=== PATIENT | female | born 1975 | race Caucasian/White ===

== ENCOUNTER → 2017-07-30 | Outpatient (CLI) | payer BC ==
--- NOTE | 2017-07-30 10:22 | MM ---
Reason for exam: screening (asymptomatic). Baseline mammogram. History: Taking hormonal contraceptives for 16 years beginning at age 26. Physical Findings: Nurse did not find any significant physical abnormalities on exam. MG Screening Mammo w CAD Bilateral CC and MLO view(s) were taken. The breast tissue is heterogeneously dense. This may lower the sensitivity of mammography. There is no discrete abnormality. These results were verbally communicated with the patient and result sheet given to the patient on 07/30/17. ASSESSMENT: Negative, BI-RAD 1 RECOMMENDATION: Routine screening mammogram of both breasts in 1 year.
== END | disposition home or self-care (01) ==
LOC: RADMAMWWP 09:29
PROVIDERS: ATTEND Obstetrics & Gynecology Obstetrics
DX: Z12.31 Encounter for screening mammogram for malignant neoplasm of breast (principal)

== ENCOUNTER → 2018-10-15 | Outpatient (CLI) | payer BC ==
--- NOTE | 2018-10-16 10:00 | MM ---
Reason for exam: screening (asymptomatic). Last mammogram was performed 1 year and 2 months ago. History: Taking hormonal contraceptives for 17 years beginning at age 26. Physical Findings: A clinical breast exam by your physician is recommended on an annual basis and results should be correlated with mammographic findings. MG 3D Screening Mammo W/Cad Bilateral CC and MLO view(s) were taken. Prior study comparison: July 30, 2017, bilateral MG screening mammo w CAD. The breast tissue is heterogeneously dense. This may lower the sensitivity of mammography. Stable benign calcifications. There is no discrete abnormality. No significant changes when compared with prior studies. ASSESSMENT: Benign, BI-RAD 2 RECOMMENDATION: Routine screening mammogram of both breasts in 1 year.
== END | disposition home or self-care (01) ==
LOC: RADMAMWWP 09:52
PROVIDERS: ATTEND Obstetrics & Gynecology Obstetrics
DX: Z12.31 Encounter for screening mammogram for malignant neoplasm of breast (principal)
CPT/HCPCS: 77063; 77067

== ENCOUNTER 2019-12-26 12:59 | Observation (INO) | payer BC ==
[2019-12-26] MEDS ORDERED: HYDROmorphone 1 MG/ML 1 ML SYRINGE IVP STA (13:18)
[2019-12-26] MEDS ORDERED: SODIUM CHLORIDE 0.9% 1,000 ML IV STA (13:18)
--- NOTE | 2019-12-26 13:22 | ED ---
General Adult HPI - General Chief complaint: Abdominal Pain Stated complaint: Abd Pain Time Seen by Provider: 12/26/19 13:02 Source: patient, RN/MD (Discussed with transferring physician), EMS, RN notes reviewed, old records reviewed (Reviewed reports from [facility]) Mode of arrival: EMS Limitations: no limitations - History of Present Illness Initial comments: Patient is a pleasant 44-year-old female presenting to the emergency Department with complaints of pelvic/abdominal pain. Onset of symptoms was around . Discomfort has been waxing and waning since that time and is moderate at this time. No history of similar symptoms previously. Patient was seen at [facility] with concern for possible tubo-ovarian abscess or ovarian torsion based on CT and ultrasound. Patient states discomfort is actually more right lower abdomen/pelvis however does radiate throughout. Discomfort is positional. Discomfort is severe at times. - Related Data Home Medications Medication Instructions Recorded Confirmed Levothyroxine Sodium [Levoxyl] 112 mcg PO DAILY 11/22/15 12/26/19 Naproxen 500 mg PO HS 11/22/15 12/26/19 Allergies Allergy/AdvReac Type Severity Reaction Status Date / Time No Known Allergies Allergy Verified 12/26/19 14:04 Review of Systems ROS Statement: Those systems with pertinent positive or pertinent negative responses have been documented in the HPI. ROS Other: All systems not noted in ROS Statement are negative. Constitutional: Denies: fever Eyes: Denies: eye pain ENT: Denies: ear pain Respiratory: Denies: cough Cardiovascular: Denies: chest pain Endocrine: Denies: fatigue Gastrointestinal: Reports: as per HPI, abdominal pain Genitourinary: Reports: other (Pelvic pain) Musculoskeletal: Denies: arthralgia Skin: Denies: rash Neurological: Denies: weakness Past Medical History Past Medical History: No Reported History History of Any Multi-Drug Resistant Organisms: None Reported Additional Past Surgical History / Comment(s): COLON BIOPSY Past Psychological History: No Psychological Hx Reported Smoking Status: Never smoker Past Alcohol Use History: None Reported Past Drug Use History: None Reported General Exam Limitations: no limitations General appearance: alert Head exam: Present: normocephalic Eye exam: Present: normal appearance Neck exam: Present: normal inspection Respiratory exam: Present: normal lung sounds bilaterally Cardiovascular Exam: Present: regular rate, normal rhythm Expanded Peripheral pulses: 2+: Dorsalis Pedis (R), Dorsalis Pedis (L) GI/Abdominal exam: Present: soft, tenderness (Moderate tenderness lower abdomen), normal bowel sounds. Absent: distended, guarding, rebound, rigid Extremities exam: Present: normal inspection Neurological exam: Present: alert Psychiatric exam: Present: normal affect, normal mood Skin exam: Present: normal color Course Vital Signs 12/26/19 13:01 Temperature 99.7 F H Pulse Rate 77 Respiratory 18 Rate Blood Pressure 108/72 O2 Sat by Pulse 98 Oximetry - Reevaluation(s) Reevaluation #1: 12/26/19 13:22 Case was discussed twice with Dr. Harris, covering for Dr. Gil who would like repeat ultrasound. She will come evaluate the patient. Medical Decision Making - Medical Decision Making Patient was seen emergency department by Dr. Valero who will take patient to the OR. Patient reevaluated and updated. - Radiology Data Radiology results: report reviewed (Pelvic ultrasound shows enlarged uterus with underlying leiomyomas. Displaced IUD. Complex left ovarian lesion could represent hemorrhagic cyst. Complex fluid in cul-de-sac. No evidence of torsion.) Disposition Clinical Impression: Hemorrhagic cyst of left ovary Disposition: ADMITTED IP TO THIS HOSP Condition: Serious Is patient prescribed a controlled substance at d/c from ED?: No Referrals: Ray Rodriguez III, MD [Primary Care Provider] - 1-2 days Decision Time: 14:42
--- NOTE | 2019-12-26 14:03 | US ---
EXAMINATION TYPE: US pelvic complete DATE OF EXAM: 12/26/2019 COMPARISON: NONE CLINICAL HISTORY: Ovarian cystic lesion, evaluate for abscess or tor. severe pelvic pain, IUD placeme nt 3 years ago TECHNIQUE: Transabdominal (TA). Patient preferred TA approach at this time due to pain Date of LMP: unknown EXAM MEASUREMENTS: Uterus: 14.0 x 6.7 x 7.8 cm Endometrial Stripe: 0.6 cm Right Ovary: 3.0 x 1.7 x 2.1 cm Left Ovary: 6.7 x 4.2 x 5.0 cm 1. Uterus: Anteverted hypoechoic area fundus/body = 5.4 x 4.6 x 5.0cm 2. Endometrium: IUD visualized 3. Right Ovary: follicles noted 4. Left Ovary: enlarged with complex area = 5.4 x 3.4 x 3.5cm Spectral, color and waveform doppler imaging shows good arterial and venous flow within the ovaries ; there is no evidence for ovarian torsion. 5. Bilateral Adnexa: free fluid right adnexa 6. Posterior cul-de-sac: complex fluid collection noted within cul-de-sac ?blood IMPRESSION: 1. Enlarged uterus with underlying leiomyomatous change. 2. Displaced IUD. 3. Complex left ovarian lesion may reflect hemorrhagic cyst. Lesion of other etiology not excluded. A ppropriate follow-up advised. Complex fluid within the cul-de-sac as well. No evidence for torsion.
--- NOTE | 2019-12-26 14:43 | P.HPOB ---
History of Present Illness H&P Date: 12/26/19 Chief Complaint: left hemorrhagic cyst, abdominal pain This is a pleasant 44-year-old female that presents to the emergency department as a transfer patient from [facility]. Patient presented to the ER with complaints of abdominal pain. Patient states on Sunday she was having intercourse and noted sharp onset of discomfort. Patient states it was uncomfortable to move she worse on her back. Patient states by the next day she felt slightly improved. By she was feeling well, had intercourse once again pain returned more sharp, she noted diarrhea/increased pain with a bowel movement after intercourse as well. Patient had an ultrasound here in our emergency department revealing a enlarged uterus of 14 cm, normal and Pily stripe, normal right ovary, left complex area measuring 5.4 x 3.4 x 3.5 cm. Complex fluid noted in the cul-de-sac suspicious for blood. Patient denies fevers or chills at home. Patient has a known IUD in place, she denies any irregular menstrual bleeding. 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 Review of Systems Constitutional: Denies chills, Denies fever Ears, nose, mouth and throat: Denies headache Cardiovascular: Denies edema Respiratory: Denies cough Gastrointestinal: Reports bloating, Reports diarrhea, Reports hematochezia, Denies nausea, Denies vomiting Genitourinary: Denies abnormal vaginal bleeding, Denies dyspareunia, Denies urgency Past Medical History Past Medical History: No Reported History History of Any Multi-Drug Resistant Organisms: None Reported Additional Past Surgical History / Comment(s): COLON BIOPSY Past Psychological History: No Psychological Hx Reported Smoking Status: Never smoker Past Alcohol Use History: None Reported Past Drug Use History: None Reported Medications and Allergies Home Medications Medication Instructions Recorded Confirmed Type Levothyroxine Sodium [Levoxyl] 112 mcg PO DAILY 11/22/15 12/26/19 History Naproxen 500 mg PO HS 11/22/15 12/26/19 History Allergies Allergy/AdvReac Type Severity Reaction Status Date / Time No Known Allergies Allergy Verified 12/26/19 14:04 Exam Osteopathic Statement: *. No significant issues noted on an osteopathic structural exam other than those noted in the History and Physical/Consult. Vital Signs Temp Pulse Resp BP Pulse Ox 12/26/19 13:01 99.7 F H 77 18 108/72 98 Intake and Output 12/25/19 12/26/19 12/26/19 22:59 06:59 14:59 Other: Weight 63.503 kg Targeted physical exam is performed and the state in general this is a well- nourished well-developed female in obvious acute pain. Breathing is noted to be nonlabored, heart has regular rate and rhythm, abdomen is noted to be distended and tender diffusely. On bimanual exam external genitalia is noted to be normal, cervix is palpated in normal diffuse tenderness is noted on exam. It was difficult to appreciate either ovary secondary to discomfort. Assessment and Plan (1) Hemorrhagic cyst of left ovary Current Visit: Yes Status: Acute Code(s): N83.202 - UNSPECIFIED OVARIAN CYST, LEFT SIDE SNOMED Code(s): 705785097 (2) Abdominal pain Current Visit: Yes Status: Acute Code(s): R10.9 - UNSPECIFIED ABDOMINAL PAIN SNOMED Code(s): 62105125 Plan: Exam findings are discussed with the patient in her significant other, given the surgical nature of her abdomen recommending operative laparoscopy, possible left oophorectomy, possible open to complete procedure if necessary. Risks of surgery are reviewed with the patient in detail including but not limited to infection, bleeding, damage to bowel, bladder, ureteric injury. Patient states understanding and informed consent is obtained.
[2019-12-26] MEDS ORDERED: HYDROmorphone 1 MG/ML 1 ML SYRINGE IVP PRN (14:44)
[2019-12-26] MEDS ORDERED: ROCURONIUM BROMIDE 10 MG/ML 5 ML VIAL IV ONE (15:35)
[2019-12-26] MEDS ORDERED: DEXAMETHASONE SOD PHOS (MDV) 100 MG/10 ML VIAL ONE (15:35)
[2019-12-26] MEDS ORDERED: fentaNYL (PF) 50 MCG/ML 2 ML AMP ONE (15:35)
[2019-12-26] MEDS ORDERED: ONDANSETRON 4 MG/2 ML VIAL ONE (15:35)
[2019-12-26] MEDS ORDERED: MIDAZOLAM 2 MG/2 ML VIAL ONE (15:35)
[2019-12-26] MEDS ORDERED: GLYCOPYRROLATE 0.2 MG/ML 2 ML VIAL ONE (15:35)
[2019-12-26] MEDS ORDERED: LIDOCAINE 1% INJ 10MG/ML (20 ML MDV) ONE (15:35)
[2019-12-26] MEDS ORDERED: NEOSTIGMINE 1 MG/ML 10 ML VIAL ONE (15:35)
[2019-12-26] MEDS ORDERED: SUCCINYLCHOLINE CHLORIDE 100 MG/5 ML SYR IV ONE (15:35)
[2019-12-26] MEDS ORDERED: PROPOFOL 10 MG/ML 20 ML VIAL IV ONE (15:35)
[2019-12-26] MEDS ORDERED: IV FLUID CONTINUATION 800 ML IV ONE (15:53)
[2019-12-26] MEDS ORDERED: LACTATED RINGERS 1,000 ML IV ONE (16:23)
[2019-12-26] MEDS ORDERED: BUPIVACAINE (PF) 0.25% 30 ML VIAL SQ ONE ×2 (16:24)
[2019-12-26 16:41] LABS: Basophils % (A) 0 %; Eosinophils % (A) 0 %; HCT 31.9 % (34.0-46.0); HGB 10.2 gm/dL (11.4-16.0); Lymphocytes # (A) 2.2 k/uL (1.0-4.8); Lymphocytes % (A) 15 %; MCH 29.5 pg (25.0-35.0); MCV 92.4 fL (80.0-100.0); Mean Platelet Volume 7.4; Monocytes # (A) 0.8 k/uL (0-1.0); Monocytes % (A) 6 %; Neutrophils # (A) 11.5 k/uL (1.3-7.7); Neutrophils % (A) 77 %; Platelet Count 266 k/uL (150-450); RBC 3.45 m/uL (3.80-5.40); RDW 12.1 % (11.5-15.5); WBC 14.9 k/uL (3.8-10.6)
[2019-12-26 16:52] VITALS: RESP 16
--- NOTE | 2019-12-26 17:02 | P.OP ---
Date of Procedure: 12/26/19 Preoperative Diagnosis: left ovarian hemorrhagic cyst, abdominal pain Postoperative Diagnosis: same plus hemoperitoneum Procedure(s) Performed: operative laparoscopy with left salpingo-for ectomy, evacuation of hemoperitoneum. Anesthesia: KWADWOA Surgeon: Sandi Gil Critical Care Technician #1: Snow Harris Estimated Blood Loss (ml): 50 IV fluids (ml): 1,000 Urine output (ml): 350 Pathology: other (left ovary and fallopian tube) Condition: stable Disposition: PACU Indications for Procedure: this 44-year-old 3 para 3 presented to the emergency department with complaints of severe abdominal pain. Patient states the pain started on Sunday was alleviated by and returned on Sunday with severe intensity. Patient was noted on ultrasound to have an enlarged left ovary with a complex mass suspicious for hemorrhagic cyst, blood was noted in the posterior cul-de-sac. Patient was consented in the emergency department for operative laparoscopy with possible left sopping oophorectomy given her ultrasound findings. Patient stated understanding and was taken back to the operative suite. Operative Findings: enlarged left ovary with hemorrhagic cyst, hemoperitoneum was noted approximate 750 mL of blood was evacuated from the abdomen and during the procedure. Description of Procedure: patient was taken back to the operating room where general anesthesia was obtained without difficulty by the anesthesia department she was prepped and draped in the normal sterile fashion in the dorsal lithotomy position. A weighted speculum posterior vaginal vault the anterior lip the cervix is visualized and grasped with a single-tooth tenaculum. IUD strings were noted but an acorn uterine macular was advanced into the cervix as a means to minipl ate uterus throughout the procedure. Attention was then turned to the patient's abdomen where in the umbilical fold a small skin incision is is made, through this incision the Veress needles placed. Once the Veress needle is deemed to be in the appropriate position with a drop of CO2 pressure with insufflation of CO2 gas CO2 insufflation was allowed to occur. 3 L of gas were used to obtain pneumoperitoneum. At this time the incision was elongated and a 10 mm trocar and sleeve is placed through the incision and toward the pneumoperitoneum with the laparoscope in place. The trocars removed with the sheath remaining in place, the above-noted findings were visualized. and additional port site was placed in the right lower quadrant under direct visualization, this is a 5 mm trocar trocar. The suction parimutuel ticket cashier was then introduced into the pelvis and a large amount of clot was removed. An additional port site is placed in the left lower quadrant this is a 10 mm trocar and placed under direct visualization. The left ovary and tube was then elevated from the pelvis the infundibulopelvic ligament is visualized the LigaSure was placed into the abdomen the infundibulopelvic ligament was coagulated distally and proximally divided. This continued through the uterine ovarian hemostasis was appreciated. The ovary was then placed in an Endo Catch bag. The pedicle was then inspected and hemostasis was appreciated. the Endo Catch bag was removed without difficulty. The pelvis was then copiously irrigated and cleared of all clots and debris. Bleeding was noted on the upper portion of the liver therefore this was carefully suctioned out. Once again the pedicle was visualized and hemostasis was appreciated. The right ovary was visualized and normal in nature. The uterus was noted to be globular and enlarged. After multiple pictures were taken before and after the laparoscope was removed along with all instruments. The skin incisions were closed with 4-0 Vicryl in a septic fashion surgery strips and sterile dressings were applied. All counts were correct 2 patient was taken the recovery room awake in stable condition.
[2019-12-26 21:28] VITALS: BP 108/68; PULSE 78; TEMP 99
== END 2019-12-26 20:40 | disposition home or self-care (01) ==
LOC: EC 12:59 → 4FBP 14:43
PROVIDERS: ADMIT Obstetrics & Gynecology Obstetrics; ATTEND Obstetrics & Gynecology Obstetrics
DX: N83.202 Unspecified ovarian cyst, left side (principal); Z79.890 Hormone replacement therapy; Z97.5 Presence of (intrauterine) contraceptive device; Z03.818 Encounter for observation for suspected exposure to other biological agents ruled out; N83.8 Other noninflammatory disorders of ovary, fallopian tube and broad ligament; K66.1 Hemoperitoneum
CPT/HCPCS: 58661; 96374; 99285; 85025; 88307; 87635; 93975; 76856; G0378; J2250; J2710; J2405; J2001; J3010; J1170; J1100; J0330; J2704

== ENCOUNTER → 2021-01-04 | Outpatient (CLI) | payer BC ==
[2021-01-04 13:47] LABS: Basophils % (A) 1 %; Eosinophils # (A) 0.1 k/uL (0-0.7); Eosinophils % (A) 2 %; HCT 44.1 % (34.0-46.0); HGB 14.8 gm/dL (11.4-16.0); Lymphocytes # (A) 1.8 k/uL (1.0-4.8); Lymphocytes % (A) 30 %; MCH 30.2 pg (25.0-35.0); MCHC 33.5 g/dL (31.0-37.0); MCV 90.1 fL (80.0-100.0); Mean Platelet Volume 6.9; Monocytes # (A) 0.4 k/uL (0-1.0); Monocytes % (A) 7 %; Neutrophils # (A) 3.5 k/uL (1.3-7.7); Neutrophils % (A) 59 %; Platelet Count 303 k/uL (150-450); RBC 4.89 m/uL (3.80-5.40); RDW 11.5 % (11.5-15.5)
[2021-01-04 14:02] LABS: African American GFR (CKD) >90 (>60 ml/min/1.73 sqM); Anion Gap 6 mmol/L; Blood Urea Nitrogen 13 mg/dL (7-17); Carbon Dioxide 28 mmol/L (22-30); Chloride 104 mmol/L (98-107); Glucose 97 mg/dL (74-99); Non-African American GFR(CKD) 82 (>60 ml/min/1.73 sqM); Potassium 4.8 mmol/L (3.5-5.1); Sodium 138 mmol/L (137-145)
== END | disposition home or self-care (01) ==
LOC: LABPAT 12:42
PROVIDERS: ATTEND Obstetrics & Gynecology Obstetrics
DX: Z01.812 Encounter for preprocedural laboratory examination (principal); D25.9 Leiomyoma of uterus, unspecified; R10.2 Pelvic and perineal pain
CPT/HCPCS: 36415; 80051; 82565; 82947; 84520; 85025; 86850; 86900; 86901; 87077; 87086; 87186

== ENCOUNTER 2021-01-10 07:14 | Day surgery (SDC) | payer BC ==
[2021-01-03 11:45] VITALS: BMI 23.3
[~2021-01-10 07:14] MED LIST: DEXAMETHASONE SOD PHOSPHATE 4 MG/ML 1 ML VIAL IV ONE; HYDROmorphone 0.5 MG/0.5 ML SYRINGE IVP PRN; LACTATED RINGERS 1,000 ML IV SCH; ONDANSETRON 4 MG/2 ML VIAL IVP ONE
[2021-01-10] MEDS ORDERED: LIDOCAINE 1% (10MG/ML) FOR IV START INTRADERMA ONE (08:07)
[2021-01-10] MEDS ORDERED: fentaNYL (PF) 50 MCG/ML 2 ML AMP IVP ONE (08:43)
[2021-01-10] MEDS ORDERED: MIDAZOLAM 2 MG/2 ML VIAL IVP ONE (08:43)
[2021-01-10] MEDS ORDERED: MORPHINE SULFATE (PF) 0.3 MG/0.3 ML SYR ONE (09:05)
[2021-01-10] MEDS ORDERED: MIDAZOLAM 2 MG/2 ML VIAL ONE (09:05)
[2021-01-10] MEDS ORDERED: SUCCINYLCHOLINE CHLORIDE 100 MG/5 ML SYR IV ONE (09:05)
[2021-01-10] MEDS ORDERED: LIDOCAINE 1% INJ 10MG/ML (20 ML MDV) ONE (09:05)
[2021-01-10] MEDS ORDERED: ROCURONIUM 10 MG/ML (5 ML VIAL) IV ONE (09:05)
[2021-01-10] MEDS ORDERED: GLYCOPYRROLATE 0.2 MG/ML 2 ML VIAL ONE (09:05)
[2021-01-10] MEDS ORDERED: PROPOFOL 10 MG/ML 20 ML VIAL IV ONE (09:05)
[2021-01-10] MEDS ORDERED: NEOSTIGMINE 1 MG/ML 10 ML VIAL ONE (09:05)
[2021-01-10] MEDS ORDERED: fentaNYL (PF) 50 MCG/ML 2 ML AMP ONE (09:05)
[2021-01-10] MEDS ORDERED: BUPIVACAINE (PF) 0.25% 30 ML VIAL SQ ONE ×2 (10:08)
[2021-01-10] MEDS ORDERED: MORPHINE SULFATE 2 MG/ML SYRINGE IVP PRN (10:09)
[2021-01-10] MEDS ORDERED: ONDANSETRON 4 MG/2 ML VIAL IVP PRN ×2 (10:09→11:30)
[2021-01-10] MEDS ORDERED: NALBUPHINE 10 MG/ML (1 ML AMP) IV PRN (10:09)
[2021-01-10] MEDS ORDERED: NALOXONE 0.4 MG/ML 1 ML VIAL IV PRN (10:09)
--- NOTE | 2021-01-10 10:09 | P.ANPRN ---
Procedure Note - Anesthesia - Epidural/Spinal Spinal Time Out Performed: Yes Date of Procedure: 01/10/21 Procedure Start Time: 08:42 Procedure Stop Time: 08:46 Location of Patient: PreOp Indication: Acute Post-Operative Pain, Requested by Surgeon (gera) Sedation Type: Sedate with meaningful contact maintained Preparation: Sterile Prep Number of Attempts: 1 Position: Sitting Needle Guage: 25 Narrative: Sterile protocol. Lido 1% 2cc. introducer L4/5. 25 g spinal in one attempt. +CSF +Fentanyl 25mcg +Duramorph 300mcg Blood Aspirated: No Pain Paresthesia on Injection Noted: No Events: Uneventful and Well Tolerated
[2021-01-10] MEDS ORDERED: SIMETHICONE 80 MG CHEWABLE PO PRN (11:30)
[2021-01-10] MEDS ORDERED: Acetaminophen-Codeine 300-30mg TAB PO PRN ×2 (11:30)
[2021-01-10] MEDS ORDERED: LACTATED RINGERS 1,000 ML IV ONE (11:32)
--- NOTE | 2021-01-10 11:40 | P.OP ---
Date of Procedure: 01/10/21 Preoperative Diagnosis: Uterine fibroids, abnormal uterine bleeding, history of ROSIE-2, pelvic pain Postoperative Diagnosis: Same Procedure(s) Performed: Robotic cyst vaginal hysterectomy with right salpingectomy, diagnostic cystoscopy Anesthesia: FAVIOLA Surgeon: Sandi Gil Croze Cutter #1: Lauri Webb Estimated Blood Loss (ml): 100 IV fluids (ml): 700 Urine output (ml): 100 Pathology: other (Uterus cervix right fallopian tube) Condition: stable Disposition: PACU Indications for Procedure: This 45-year-old female with complaints of increasing pelvic pain and known uterine fibroids presents for definitive treatment. Patient had been experiencing irregular vaginal bleeding in addition. Patient has a history of abnormal Paps and a CKC for ROSIE-2. Operative Findings: Enlarged globular uterus with normal right appearing ovary. On diagnostic cystoscopy and the bladder was noted to be intact, some bruising was noted from the surgery bladder bubble was appreciated. Both ureteral orifices were spilling clear yellow urine. Description of Procedure: Patient was taken back to the operating suite where general anesthesia was obtained without difficulty by the anesthesia department. She was then prepped and draped in normal sterile fashion in the dorsal lithotomy position. A Juan catheter was then placed under sterile technique. A weighted speculum was placed in the posterior vaginal vault the interval of the cervix was visualized and grasped with a single-tooth tenaculum. Endocervical canal was then dilated and a TakeCare care uterine manipulator was placed. The cervical cap was placed snugly against the cervix and all instruments were removed. Attention was then turned to the patient's abdomen were approximate 2 finger breaths above the umbilicus a small skin incision is made. Through the skin incision the Veress needle is placed. Once the Veress needle was deemed to be in the appropriate position with a drop of CO2 pressure CO2 insufflation was allowed to occur. At this time a 8 mm trocar and sleeve with the laparoscope in place was placed through the skin incision and toward the pneumoperitoneum. The above-noted findings were visualized. The additional port sites are then placed at 10 cm lateral and 3 cm inferior to midline port these are 8 mm operative ports through the da Davida machine that are placed under direct visualization. In the left upper quadrant a 12 mm skin incision is made and a 12 mm trocar and sleeve is placed through the skin incision and toward the pneumoperitoneum under direct visualization. At this time the da Davida robot is docked in the usual fashion. The operative arms are then placed, in the heart right operative arm the monopolar scissors, the left operative arm the bipolar forceps is placed. Attention was then turned to the patient's remnant of her left utero-ovarian ligament which was coagulated distally and proximally and divided. This continued through the broad and t oward the round which was coagulated distally and proximal plane divided. The bladder flap was then created using sharp and blunt dissection. The ascending branch the uterine artery was visualized and transected. Hemostasis was appreciated throughout. Attention was then turned to the patient's right fallopian tube which was grasped and mesosalpinx was coagulated and transected. This continued toward the uterine ovarian ligament which was coagulated distally and proximally and divided. The round ligament was then visualized coagulated distally and proximally and divided. At this time the bladder flap from the right was then created using sharp and blunt dissection. The ascending branch of the uterine artery from the right was visualized coagulated and transected. Hemostasis was appreciated throughout. At this time the only remaining attachment was a vaginal attachment therefore a colpotomy incision was made in a circumferential fashion. The uterus was then delivered through the vaginal opening. A small amount of bleeding was made hemostatic with the Bovie on the left side of the vaginal cuff. The pelvis was then copiously irrigated and the vaginal cuff was closed with multiple [id number] sutures of 0 Vicryl. The right and left ureter were visualized and noted to be pulsating in a normal fashion. Hemostasis was appreciated across the vaginal cuff. At this time attention was then turned to the Juan catheter which was removed without difficulty, some pink tinged urine was appreciated. The cystoscope was then placed through the urethra and toward the bladder bladder bubble was appreciated a complete survey of the bladder revealed an intact mucosa some bruising from the procedure was appreciated. Both ureteral orifices were noted to be spilling clear yellow urine. The cystoscope was removed and the Juan catheter was replaced. The vaginal vault was cleared of any remnants of bleeding. The da Davida robot was then undocked in the usual fashion the instrument were then removed. The skin incisions were closed with 4-0 Vicryl in a subcuticular fashion Steri-Strips and sterile dressings were applied after lidocaine was instilled into the incisions. All counts were noted be correct 2 at the end of the procedure Patient tolerated procedure well.
[2021-01-11] MEDS: IBUPROFEN 600 MG TAB PO PRN ×3 (01:00→14:27)
[2021-01-11] MEDS: SENNOSIDES-DOCUSATE SODIUM 1 EACH TAB PO SCH ×2 (01:00→10:06)
[2021-01-11 02:29] VITALS: RESP 16
[2021-01-11 07:23] LABS: Basophils % (A) 0 %; Eosinophils % (A) 0 %; HCT 35.2 % (34.0-46.0); Lymphocytes # (A) 2.2 k/uL (1.0-4.8); Lymphocytes % (A) 17 %; MCH 30.3 pg (25.0-35.0); MCV 91.9 fL (80.0-100.0); Mean Platelet Volume 7.4; Monocytes # (A) 0.6 k/uL (0-1.0); Monocytes % (A) 5 %; Neutrophils # (A) 9.6 k/uL (1.3-7.7); Neutrophils % (A) 77 %; Platelet Count 266 k/uL (150-450); RBC 3.83 m/uL (3.80-5.40); RDW 12.1 % (11.5-15.5); WBC 12.5 k/uL (3.8-10.6)
[2021-01-11 07:29] LABS: HGB 11.6 gm/dL (11.4-16.0)
--- NOTE | 2021-01-11 08:41 | P.DS ---
Providers Date of admission: 01/10/2021 Expected date of discharge: 01/11/21 Attending physician: Sandi Gil Primary care physician: Shilpi Gilman - Discharge Diagnosis(es) (1) Abnormal uterine bleeding (AUB) Current Visit: Yes Status: Acute (2) Uterine fibroid Current Visit: Yes Status: Acute (3) Abdominal pain Current Visit: No Status: Acute Hospital Course: This 45-year-old female with known uterine fibroids and abnormal uterine bleeding presented yesterday for scheduled robotic cyst vaginal hysterectomy with right salpingectomy. Diagnostic cystoscopy was performed in addition. Patient underwent procedure without complication uterus was noted to be enlarged with adenomyosis, and uterine fibroids, right ovary was normal in appearance. Patient's postoperative course has been uneventful. On this postop day #1 she is ambulating and voiding without difficulty. She is tolerating clear liquids without nausea or vomiting. She states her pain is controlled with oral ibuprofen and Tylenol. She would like discharge home today. Patient Condition at Discharge: Good Plan - Discharge Summary Discharge Rx Participant: No New Discharge Prescriptions: No Action Levothyroxine Sodium [Levoxyl] 112 mcg PO HS Ergocalciferol [Vitamin D2 (1250 Mcg = 84299 Iu)] 1,250 mcg PO WEEKLY Cyanocobalamin (Vitamin B-12) [Vitamin B-12] 1,000 mcg PO DAILY Discharge Medication List Levothyroxine Sodium [Levoxyl] 112 mcg PO HS 11/22/15 [History] Cyanocobalamin (Vitamin B-12) [Vitamin B-12] 1,000 mcg PO DAILY 01/03/21 [History] Ergocalciferol [Vitamin D2 (1250 Mcg = 27322 Iu)] 1,250 mcg PO WEEKLY 01/03/21 [History] Follow up Appointment(s)/Referral(s): Sandi Gil DO [Doctor of Osteopathic Medicine] - 2 Weeks Patient Instructions/Handouts: Laparoscopic Hysterectomy (GEN), Laparoscopic Hysterectomy (DC) Activity/Diet/Wound Care/Special Instructions: Patient can expect spotting to menstrual-like bleeding postoperatively. Patient can experience menstrual-like cramps in addition. [id number] ibuprofen and Tylenol as needed for pain. Patient is to call the office should she have any concerns prior to HER-2 week postoperative visit. Discharge Disposition: HOME SELF-CARE
[2021-01-11 08:47] VITALS: BP 96/62; PULSE 82; TEMP 97.4
--- NOTE | 2021-01-11 09:19 | P.PN ---
Progress Note - Text 01/11/21 644am 45-year-old female status post vaginal hysterectomy. Patient had spinal Duramorph for postop pain control, patient seen and evaluated this morning, patient has a VAS of 0. Patient had complains of nausea vomiting yesterday which is subsided and the pruritus is getting better.
[2021-01-11] MEDS ORDERED: LEVOTHYROXINE 112 MCG TAB PO SCH (21:00)
== END 2021-01-11 15:30 | disposition home or self-care (01) ==
LOC: OR 07:14 → 4FBP 12:11 → OR 01-11 15:30
PROVIDERS: ATTEND Obstetrics & Gynecology Obstetrics
DX: D25.9 Leiomyoma of uterus, unspecified (principal); N93.8 Other specified abnormal uterine and vaginal bleeding; N72 Inflammatory disease of cervix uteri; N88.8 Other specified noninflammatory disorders of cervix uteri; N73.6 Female pelvic peritoneal adhesions (postinfective); E03.9 Hypothyroidism, unspecified; I65.8 Occlusion and stenosis of other precerebral arteries; Z20.822 Contact with and (suspected) exposure to COVID-19; Z79.890 Hormone replacement therapy
CPT/HCPCS: 58554; S2900; 81025; 85025; 86850; 86900; 86901; 87635; 88307; 88341; 88342

== ENCOUNTER → 2022-01-13 | Outpatient (CLI) | payer BC ==
--- NOTE | 2022-01-13 15:43 | CT ---
EXAMINATION TYPE: CT chest w con DATE OF EXAM: 01/13/2022 COMPARISON: None HISTORY: Dyspnea CT DLP: 198.30 mGycm Automated exposure control for dose reduction was used. TECHNIQUE: CT scan of the chest is performed with IV Contrast, patient injected with 100 mL of Isovue 300. MIP Images are created on CT scanner and reviewed. 3D reconstructed images are created on an independent workstation and reviewed. FINDINGS: The lungs are clear of consolidative, interstitial or masslike density. There is no pleural effusion, pleural thickening or pneumothorax. The great vessels the chest are normal and there is no mediastinal, hilar or axillary adenopathy. The osseous structures are intact. Limited scanning through the upper abdomen reveals no abnormality. IMPRESSION: No significant abnormality seen.
== END | disposition home or self-care (01) ==
LOC: RADCTMAIN 15:02
PROVIDERS: ATTEND Family Medicine
DX: R06.00 Dyspnea, unspecified (principal)
CPT/HCPCS: 71260; Q9967

== ENCOUNTER → 2022-02-15 | Outpatient (CLI) | payer BC ==
--- NOTE | 2022-02-16 02:03 | MR ---
EXAMINATION TYPE: MR lumbar spine wo con DATE OF EXAM: 02/15/2022 COMPARISON: None HISTORY: Low back pain that radiates down right leg. Multiplanar multiecho imaging of the lumbar spine without contrast. Lumbar vertebrae have normal alignment. Disc spaces are fairly well-maintained for the patient's age. There is a small posterior disc bulge at L5-S1 no spinal stenosis. There is relatively adequate spin al canal. The lumbar neural foramina overall are fairly well-maintained. No lumbar paraspinal mass. N o compression fracture. There is rudimentary disc at S1-S2. Lumbar nerve roots appear normal. IMPRESSION: There is a small posterior disc bulge at L5-S1. No spinal stenosis. No fracture.
== END | disposition home or self-care (01) ==
LOC: RADMRIMAIN 18:02
PROVIDERS: ATTEND Orthopaedic Surgery Orthopaedic Surgery of the Spine
DX: M43.16 Spondylolisthesis, lumbar region (principal); M47.26 Other spondylosis with radiculopathy, lumbar region
CPT/HCPCS: 72148

== ENCOUNTER → 2024-06-20 | Outpatient (CLI) | payer BC | END | disposition home or self-care (01) | LOC: LABWHC1 10:32 | PROVIDERS: ATTEND Internal Medicine | DX: Z00.5 Encounter for examination of potential donor of organ and tissue (principal) | CPT/HCPCS: 36415; 86480 ==

== ENCOUNTER → 2024-08-28 | Outpatient (CLI) | payer BC | END | disposition home or self-care (01) | LOC: LABWHC1 15:31 | PROVIDERS: ATTEND Internal Medicine | DX: Z00.5 Encounter for examination of potential donor of organ and tissue (principal) | CPT/HCPCS: 36415; 86480 ==